=== PATIENT | male | born 1985 | race Two or more races ===

== ENCOUNTER 2017-08-04 12:38 | Emergency (ER) | payer MEDICAID ==
[2017-08-04 13:47] VITALS: BP 110/61; PULSE 52; RESP 18; TEMP 97.9; O2SAT 99
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
== END 2017-08-04 15:58 | disposition home or self-care (01) ==
LOC: H.ER 12:38
DX: M54.9 Dorsalgia, unspecified (principal)